=== PATIENT | female | born 1995 | race African-American/Black ===

== ENCOUNTER 2024-04-18 18:52 | Inpatient (IN) ==
[2024-04-18] MEDS: CATAPRES TAB 0.3 MG PO ONE (19:28)
--- NOTE | 2024-04-18 20:03 | DR.GENAD ---
HPI Time Seen Time Seen by Provider: 04/18/24 19:55 PCP Primary Care Physician: Kathy Monge Complaint/Symptoms Chief Complaint Doctors Comments: Was sent over by ambulance from the dialysis clinic because she had bleeding from her left upper arm dialysis shunt that could not be stopped. Chief Complaint:: EMS BRUNG PT FROM [facility] WHERE SHE HAD TREATMENT TODAY PT HAD 2.5KG OFF AND LEFT UPPER ARM SHUNT NOT CLOTTING OFF, PT HAS CLAMPS X2 APPLIED AND BP ELEVATED. COVID-19 Coronavirus risk:travel/contact w/high risk person: No Has patient experienced Coronavirus symptoms: No Source History Provided: Patient and EMS Mode of Arrival Mode of Arrival: EMS Timing Onset of Chief Complaint: 04/18/24 PMH PMH Past Medical History: Yes Past Medical History: CHF, Hypertension, [place] and Renal Disease Past Surgical History: Yes Surgical History: Other Past Surgical History Comment: DIAYLIS SHUNT PLACEMENT X3 Family History History of Family Medical Conditions: Yes Family Medical History: Hypertension Social History Do you use any recreational Drugs:: No Travel Risk Coronavirus risk:travel/contact w/high risk person: No Has patient experienced Coronavirus symptoms: No Infectious screening Have you traveled outside the country in the last 6 months?: No Isolation: Standard ROS Review of Systems Constitutional: Other (bleeding from left upper arm dialysis shunt) Eyes: No Symptoms Reported ENTM: No Symptoms Reported Respiratoy: No Symptoms Reported Cardiovascular: No Symptoms Reported Gastrointestinal/Abdominal: No Symptoms Reported Genitourinary: No Symptoms Reported Neurological: No Symptoms Reported Musculoskeletal: No Symptoms Reported Integumentary: No Symptoms Reported Hematologic/Lymphatic: No Symptoms Reported Endocrine: No Symptoms Reported Psychiatric: No Symptoms Reported PE Vital Signs Vitals: Vital Signs Temperature 97.9 F Pulse Rate 71 Pulse Rate 72 Pulse Rate 71 Pulse Rate 72 Pulse Rate 70 Pulse Rate 73 Pulse Rate 76 Pulse Rate 78 Pulse Rate 71 Pulse Rate 79 Pulse Rate 79 Pulse Rate 82 Pulse Rate 78 Pulse Rate 78 Pulse Rate 77 Pulse Rate 78 Pulse Rate 75 Respiratory Rate 23 Respiratory Rate 24 Respiratory Rate 24 Respiratory Rate 22 Respiratory Rate 24 Respiratory Rate 24 Respiratory Rate 23 Respiratory Rate 30 Respiratory Rate 25 Respiratory Rate 30 Respiratory Rate 24 Respiratory Rate 24 Respiratory Rate 31 Respiratory Rate 20 Respiratory Rate 29 Respiratory Rate 24 Respiratory Rate 29 Respiratory Rate 29 Respiratory Rate 20 Blood Pressure 208/112 Blood Pressure 171/112 Blood Pressure 191/119 Blood Pressure 216/124 Blood Pressure 204/124 Blood Pressure 239/137 Blood Pressure 225/122 Blood Pressure 225/122 Blood Pressure 230/121 O2 Sat by Pulse Oximetry 100 O2 Sat by Pulse Oximetry 100 O2 Sat by Pulse Oximetry 100 O2 Sat by Pulse Oximetry 100 O2 Sat by Pulse Oximetry 99 O2 Sat by Pulse Oximetry 99 O2 Sat by Pulse Oximetry 100 O2 Sat by Pulse Oximetry 100 O2 Sat by Pulse Oximetry 100 O2 Sat by Pulse Oximetry 99 O2 Sat by Pulse Oximetry 99 O2 Sat by Pulse Oximetry 98 O2 Sat by Pulse Oximetry 98 O2 Sat by Pulse Oximetry 98 O2 Sat by Pulse Oximetry 98 O2 Sat by Pulse Oximetry 98 O2 Sat by Pulse Oximetry 99 General Limitations: No Limitations General Appearance: In Distress (mild distress) Head Head Exam: Normal Inspection and Atraumatic Eyes Eye exam: Normal Appearance, PERRL and EOMI ENT ENT Exam: Normal Exam, Normal Oropharynx and Normal External Ear Exam External Ear Exam: Normal External Inspection TM/Canal Exam: Bilateral: Normal Nose Exam: Normal Nose Exam Mouth Exam: Normal Inspection Throat Exam: Normal Inspection Neck Neck Exam: Normal Inspection Chest Chest Inspection: Normal Inspection Respiratory Respiratory Exam: Normal Lung Sounds Bilat Cardiovascular Cardiovascular Exam: Regular Rate and Normal Rhythm Abdominal Exam Abdominal Exam: Normal Inspection and Normal Bowel Sounds Extremities Extremities Exam: Other (dialysis shunt in left upper arm with pressure point tourniquet.) Back Back Exam: Normal Inspection Neurologic Neurological Exam: Alert, Oriented X3 and CN II-XII Intact Psychiatric Psychiatric Exam: Depressed Skin Skin Exam: Warm and Dry MDM Differential Diagnosis Differential Diagnosis: bleeding from dialysis shunt that is clamped off COURSE Treatment Treatment: She also had a blood pressure elevated so she was given clonidine 0.3 mg orally here may have to do supple nicardipine drip in order to try to bring it down. We did call Dr. Baum who is the surgeon on-call and he said they he does deal with these types of shots and he told us to get a PT and INR and he would be here in 15 minutes to evaluate the patient. Dr. Baum did come in to evaluate the patient and he applied 3 sutures into that left upper arm dialysis shunt and stop bleeding the patient the patient will be admitted to him and he asked that Dr. Cho to manage her blood pressure but she refused. So Dr Baum stated to admit the patient to him and he would manage her blood pressure. [facility] Labs Reviewed Laboratory Results Reviewed?: Yes Laboratory: PT 12.5 SECONDS (11.8-14.3) 04/18/24 20:05 INR Target Range - 04/18/24 20:05 INR 0.95 (0.8-1.3) 04/18/24 20:05 APTT 27.0 SECONDS (22.9-36.5) 04/18/24 20:05 PTT Comment - 04/18/24 20:05 Opioid Opioid Risk Tool Age (Maikel box if 16-45): Yes History of Preadolescent Sexual Abuse: No Total: 1 Total Score Risk Category: Low Risk Copyright: Shamir LOWE predicting aberrant behaviors Discharge Plan Diagnosis Discharge Problem: Bleeding from dialysis shunt, Malignant hypertension Discharge Plan Patient Disposition: 09 ADMITTED INPATIENT Condition: Stable
[2024-04-18 20:24] LABS: INR 0.95 (0.8-1.3)
[2024-04-18] MEDS: ZOFRAN INJ 4 MG VIAL IVP ONE (20:59)
[2024-04-18] MEDS: MORPHINE SULFATE INJ 2 MG INJ IVP ONE (21:00)
[2024-04-18] MEDS: NITROGLYCERIN IV PREMIX 50 MG 50 MG/250 ML BAG IV PRN (22:50)
[2024-04-18] MEDS: DILAUDID INJ IVP PRN (23:26)
[2024-04-19 01:00] VITALS: BMI 27.2
[2024-04-19] MEDS: APRESOLINE TAB 25 MG PO SCH (11:15)
[2024-04-19] MEDS: CATAPRES TAB 0.3 MG PO SCH (11:15)
[2024-04-19 12:57] LABS: EOSINOPHILS % (AUTO) 5.2 % (0.9-2.9)
[2024-04-19 13:06] LABS: BASOPHILS # (AUTO) 0.2 X10^3/uL (0.0-0.1); EOSINOPHILS # (AUTO) 0.4 x10^3/uL (0.0-0.2); HEMATOCRIT 33.1 % (36.0-47.0); HEMOGLOBIN 11.1 g/dL (12.0-16.0); LYMPHOCYTES # (AUTO) 3.5 X10^3/uL (1.3-2.9); LYMPHOCYTES % (AUTO) 41.6 % (21.0-51.0); MEAN CORPUSCULAR HEMOGLOBIN 30.7 pg (27.0-34.0); MEAN CORPUSCULAR HGB CONC 33.6 g/dL (33.0-35.0); MEAN CORPUSCULAR VOLUME 91.5 fL (80.0-100.0); MONOCYTES % (AUTO) 12.2 % (0.0-13.0); NEUTROPHILS # (AUTO) 3.3 x10^3/uL (2.2-4.8); PLATELET COUNT 223 X10^3/uL (150.0-450.0); RED BLOOD COUNT 3.62 X10^6/uL (3.5-5.4); RED CELL DISTRIBUTION WIDTH 20.1 % (11.6-16.5)
[2024-04-19 13:13] LABS: WHITE BLOOD COUNT 8.4 X10^3/uL (3.6-10.0)
[2024-04-19 13:14] LABS: ANISOCYTOSIS 1+; PLATELET MORPHOLOGY COMMENT NORMAL (NORMAL)
--- NOTE | 2024-04-19 14:49 | DR.H&P ---
H&P History & Physical for Day of: H&P Date: 04/18/24 Chief Complaint Chief Complaint: bleeding from left upper arm AV fistula after removing dialysis cannulation History of Present Illness History of Present Illness: 29 nyo female with severe ypertension and subsequent renal failure who has been undergoing dialysis for many years. After dialysis yesterday via left upper arm AV fistula she continued have significant puls atile bleeding from the cannulation sites. Pressure clamps were placed over both needle sticks and she was transferred by EMS to our emergency room. Her blood pressure was 230/120. She had suture closure of the cannulation sites and is admitted for control of her blood pressure. Past Medical History Past Medical History: CHF, Hypertension, [place] and Renal Disease Additional Medical History: she gives histroy of "Leukemia " but can give few details of this Past Surgical History Surgical History: Cholecystectomy Family History Family Medical History: Diabetes Mellitus and Hypertension Social History Does patient currently use any type of tobacco product: Yes Type of Tobacco Use: Cigarettes How many years tobacco product used: 2 Does any household member use tobacco: No Alcohol Use: None Drug Use: None Medications Home Medications: Home Medications Medication Instructions Recorded Confirmed Type aspirin 81 mg tablet,delayed 81 mg PO DAILY 04/18/24 04/18/24 History release clonidine HCl 0.3 mg tablet 0.3 mg PO TID 04/18/24 04/18/24 History hydralazine 25 mg tablet 25 mg PO BID 04/18/24 04/18/24 History medroxyprogesterone 10 mg tablet 10 mg PO QDAY 04/18/24 04/18/24 History sodium polystyrene sulfonate 15 ml 04/18/24 History gram-sorbitol 20 gram/60 mL oral susp (SPS (with sorbitol)) Allergies Allergies Allergy/AdvReac Type Severity Reaction Status Date / Time levofloxacin [From Levaquin] Allergy Verified 04/18/24 19:24 pineapple Allergy Verified 01/22/23 11:49 Labs 04/19/24 12:47 Labs: Laboratory PT 12.5 SECONDS (11.8-14.3) 04/18/24 20:05 INR Target Range - 04/18/24 20:05 INR 0.95 (0.8-1.3) 04/18/24 20:05 APTT 27.0 SECONDS (22.9-36.5) 04/18/24 20:05 PTT Comment - 04/18/24 20:05 Review of Systems Constitutional: See HPI Eyes: No Symptoms Reported ENT: No Symptoms Reported Respiratory: No Symptoms Reported Cardiovascular: See HPI Gastrointestinal: No Symptoms Reported Genitourinary: No Symptoms Reported Musculoskeletal: No Symptoms Reported Skin: No Symptoms Reported Neurological: No Symptoms Reported Physical Exam Vital Signs: Vital Signs Temperature 98.4 F Temperature 98.4 F Pulse Rate [Right Brachial] 75 Pulse Rate [Right Brachial] 80 Pulse Rate [Right Brachial] 75 Pulse Rate [Right Brachial] 75 Pulse Rate [Right Brachial] 75 Pulse Rate [Right Brachial] 75 Pulse Rate [Right Brachial] 74 Pulse Rate [Right Brachial] 73 Pulse Rate [Right Brachial] 77 Pulse Rate [Right Brachial] 70 Pulse Rate [Right Brachial] 77 Pulse Rate [Right Brachial] 65 Pulse Rate [Right Brachial] 66 Pulse Rate [Right Brachial] 71 Pulse Rate [Right Brachial] 71 Pulse Rate [Right Brachial] 71 Pulse Rate [Right Brachial] 70 Pulse Rate [Right Brachial] 69 Pulse Rate [Right Brachial] 69 Pulse Rate [Right Brachial] 68 Pulse Rate [Right Brachial] 67 Pulse Rate [Right Brachial] 69 Pulse Rate [Right Brachial] 69 Pulse Rate [Right Brachial] 68 Pulse Rate [Right Brachial] 68 Pulse Rate [Right Brachial] 68 Respiratory Rate 17 Respiratory Rate 18 Respiratory Rate 15 Respiratory Rate 17 Respiratory Rate 14 Respiratory Rate 16 Respiratory Rate 17 Respiratory Rate 16 Respiratory Rate 16 Respiratory Rate 18 Respiratory Rate 18 Respiratory Rate 18 Respiratory Rate 18 Respiratory Rate 15 Respiratory Rate 15 Respiratory Rate 16 Respiratory Rate 17 Respiratory Rate 15 Respiratory Rate 15 Respiratory Rate 16 Respiratory Rate 24 Respiratory Rate 15 Respiratory Rate 15 Respiratory Rate 15 Respiratory Rate 14 Respiratory Rate 15 Respiratory Rate 14 Respiratory Rate 16 Respiratory Rate 16 Respiratory Rate 17 Blood Pressure [Left Arm] 138/96 Blood Pressure [Left Arm] 151/93 Blood Pressure [Left Arm] 154/91 Blood Pressure [Left Arm] 158/93 Blood Pressure [Left Arm] 161/93 Blood Pressure [Left Arm] 168/98 Blood Pressure [Left Arm] 173/99 Blood Pressure [Left Arm] 170/96 Blood Pressure [Left Arm] 190/105 Blood Pressure [Left Arm] 158/90 Blood Pressure [Left Arm] 139/69 Blood Pressure [Left Arm] 144/81 Blood Pressure [Left Arm] 172/105 Blood Pressure [Left Arm] 155/95 Blood Pressure [Left Arm] 166/103 Blood Pressure [Left Arm] 178/104 Blood Pressure [Left Arm] 171/04 Blood Pressure [Left Arm] 173/106 Blood Pressure [Left Arm] 173/102 Blood Pressure [Left Arm] 166/103 Blood Pressure [Left Arm] 178/107 Blood Pressure [Left Arm] 155/89 Blood Pressure [Left Arm] 155/89 Blood Pressure [Left Arm] 164/93 Blood Pressure [Left Arm] 160/94 Blood Pressure [Left Arm] 157/87 O2 Sat by Pulse Oximetry 99 O2 Sat by Pulse Oximetry 100 O2 Sat by Pulse Oximetry 99 O2 Sat by Pulse Oximetry 99 O2 Sat by Pulse Oximetry 100 O2 Sat by Pulse Oximetry 99 O2 Sat by Pulse Oximetry 99 O2 Sat by Pulse Oximetry 100 O2 Sat by Pulse Oximetry 100 O2 Sat by Pulse Oximetry 99 O2 Sat by Pulse Oximetry 100 O2 Sat by Pulse Oximetry 100 O2 Sat by Pulse Oximetry 100 O2 Sat by Pulse Oximetry 100 O2 Sat by Pulse Oximetry 100 O2 Sat by Pulse Oximetry 100 O2 Sat by Pulse Oximetry 100 O2 Sat by Pulse Oximetry 100 O2 Sat by Pulse Oximetry 100 O2 Sat by Pulse Oximetry 100 O2 Sat by Pulse Oximetry 100 O2 Sat by Pulse Oximetry 100 O2 Sat by Pulse Oximetry 100 O2 Sat by Pulse Oximetry 100 O2 Sat by Pulse Oximetry 100 O2 Sat by Pulse Oximetry 100 Oriented: Normal, Time, Person and Place Eyes: Normal Ear: Normal Nose: Normal Throat: Normal Respiratory: Clear Throughout Cardiovascular: Normal and Other (severe hypertension ) : Normal Auscultation: Bowel Sounds: Normal Palpation: Normal Tenderness: Normal Skin: Normal Musculoskeletal: Normal Psychiatric: Normal Mood Description: Anxious Affect: Anxious Speech Pattern: Clear and Appropriate Assessment/Plan (1) Hypertension: Status: Acute Plan: admit, IV NTG and make sure she is back on all of her antihypertensives (2) ESRD on dialysis: Status: Acute Plan: routine labs Review H&P Reviewed: Yes Patient was examined?: Yes
[2024-04-19] MEDS: PROCARDIA XL 24-HR PO SCH (16:24)
[2024-04-19] MEDS: NORMODYNE TAB 200 MG PO SCH (16:24)
[2024-04-19] MEDS: COZAAR PO SCH (16:24)
[2024-04-19 17:05] VITALS: O2SAT 100
--- NOTE | 2024-04-19 18:24 | NOTE.SOAP ---
Soap Note Note for Day of Date of Exam: 04/19/24 Subjective Data Subjective Data: Patient with pulsatile bleeding from our tier of venous fistula after dialysis requiring suture closure of the holes. patient with severe hypertension being treated with IV nitroglycerin. Causing headache. She has not been taking her labetalol, nifidipine and losartan and only using clonidine and hydrazine. Objective Data Temperature: 7.9 F Pulse Rate: 93 Respiratory Rate: 13 Blood Pressure: 154/98 O2 Sat by Pulse Oximetry: 100 Objective Data: Blood pressure as above but has been as high as 220 /120, no further bleeding from the puncture sites of the left arm a fistula Assessment Assessment: bleeding from puncture sites ofAV fistula left arm resolved. Still with significant hypertension Plan Plan: hydrazine increased to 25 milligrams qid. Continue clonidine, restart nifedipine , labetalol and losartan.
[2024-04-19] MEDS: KAYEXALATE SUSP PO SCH (20:33)
[2024-04-20 05:59] LABS: CALCIUM 8.5 mg/dL (8.5-10.1); CARBON DIOXIDE 27.8 mmol/L (21-32); CREATININE 7.89 mg/dL (0.55-1.02); POTASSIUM 4.4 mmol/L (3.5-5.1)
[2024-04-20] MEDS: PROVERA PO SCH (08:50)
[2024-04-20] MEDS: HYDROGEN PEROXIDE 3% ONE (09:01)
[2024-04-20] MEDS: BETADINE SOLN ONE (09:01)
--- NOTE | 2024-04-20 14:17 | NOTE.SOAP ---
Soap Note Note for Day of Date of Exam: 04/20/24 Subjective Data Subjective Data: No bleeding from the left arm AV fistula puncture sites. BP under control since all of her home antihypertensives started back . Objective Data Temperature: 98.5 F Pulse Rate: 82 Respiratory Rate: 19 Blood Pressure: 135/75 O2 Sat by Pulse Oximetry: 100 Objective Data: as above Assessment Assessment: Severe hypertension and bleeding from the left arm AV fistula punctures, resolved Plan Plan: discharge tomorrow to dialysis , continue all home antihypertensives.
--- NOTE | 2024-04-21 07:59 | W.DIS.FURT ---
Summary of Discharge Discharge Summary of Date Date of Exam: 04/21/24 Admission Date Date of Admission: 04/18/24 Admission Diagnosis Patient Problems (Updated 04/18/24 @ 22:23 by Aguila Henson) Bleeding from dialysis shunt (Acute) T82.838A Malignant hypertension (Acute) I10 Hospital Course: This is a 29 year old female within stage renal failure secondary to hypertension. She had dialysis on Sunday,the 18 of April and had significant pulsatile bleeding from the fistula of her left upper arm and was brought to the emergency room by EMS her blood pressure was 220 over 120. I' closed the puncture sites and initially placed her in the ICU and placed her on nitroglycerin drip. She has been on multiple medications for blood pressure but has not been takinf her losartan metoprolol of nifidioine She only been taking her clonidine and hydralazine She was started back on all her medications. blood pressure was under good control when takes her medications. No further bleeding from the puncture sites. She will be discharged today so she can go to dialysis . I will discuss this with her limousine rental clerk. F/U i week with me to remove sutures . Vital Signs: Vital Signs (72 hours) 04/19/24 18:24 04/20/24 14:13 04/18/24 19:08 Temperature 7.9 F L 98.5 F 97.9 F Pulse Rate 93 H 82 75 Pulse Rate [Right Brachial] Respiratory Rate 13 19 20 Blood Pressure 154/98 135/75 230/121 Blood Pressure [Left Arm] O2 Sat by Pulse Oximetry 100 100 99 Oxygen Delivery Method 04/18/24 19:10 04/18/24 19:15 04/18/24 19:30 Temperature Pulse Rate 78 77 78 Pulse Rate [Right Brachial] Respiratory Rate 29 H 29 H 24 Blood Pressure Blood Pressure [Left Arm] O2 Sat by Pulse Oximetry 98 98 98 Oxygen Delivery Method 04/18/24 19:38 04/18/24 19:38 04/18/24 19:38 Temperature Pulse Rate 78 Pulse Rate [Right Brachial] Respiratory Rate 29 H Blood Pressure 225/122 225/122 Blood Pressure [Left Arm] O2 Sat by Pulse Oximetry 98 Oxygen Delivery Method 04/18/24 19:45 04/18/24 20:00 04/18/24 20:00 Temperature Pulse Rate 82 79 Pulse Rate [Right Brachial] Respiratory Rate 20 31 H Blood Pressure 239/137 Blood Pressure [Left Arm] O2 Sat by Pulse Oximetry 98 99 Oxygen Delivery Method 04/18/24 20:07 04/18/24 20:07 04/18/24 20:15 Temperature Pulse Rate 79 71 Pulse Rate [Right Brachial] Respiratory Rate 24 24 Blood Pressure 204/124 Blood Pressure [Left Arm] O2 Sat by Pulse Oximetry 99 100 Oxygen Delivery Method 04/18/24 20:30 04/18/24 20:30 04/18/24 21:00 Temperature Pulse Rate 78 Pulse Rate [Right Brachial] Respiratory Rate 30 H 30 H Blood Pressure 216/124 Blood Pressure [Left Arm] O2 Sat by Pulse Oximetry 100 Oxygen Delivery Method 04/18/24 20:45 04/18/24 21:00 04/18/24 21:00 Temperature Pulse Rate 76 73 Pulse Rate [Right Brachial] Respiratory Rate 25 H 23 Blood Pressure 191/119 Blood Pressure [Left Arm] O2 Sat by Pulse Oximetry 100 99 Oxygen Delivery Method 04/18/24 21:15 04/18/24 21:30 04/18/24 21:30 Temperature Pulse Rate 70 72 Pulse Rate [Right Brachial] Respiratory Rate 24 24 Blood Pressure 171/112 Blood Pressure [Left Arm] O2 Sat by Pulse Oximetry 99 100 Oxygen Delivery Method 04/18/24 21:30 04/18/24 21:45 04/18/24 22:00 Temperature Pulse Rate 71 72 Pulse Rate [Right Brachial] Respiratory Rate 22 24 24 Blood Pressure Blood Pressure [Left Arm] O2 Sat by Pulse Oximetry 100 100 Oxygen Delivery Method 04/18/24 22:01 04/18/24 22:01 04/18/24 22:15 Temperature Pulse Rate 71 73 Pulse Rate [Right Brachial] Respiratory Rate 23 26 H Blood Pressure 208/112 Blood Pressure [Left Arm] O2 Sat by Pulse Oximetry 100 100 Oxygen Delivery Method 04/18/24 23:26 04/18/24 22:14 04/18/24 22:35 Temperature Pulse Rate Pulse Rate [Right Brachial] 72 Respiratory Rate 24 24 Blood Pressure Blood Pressure [Left Arm] 194/113 O2 Sat by Pulse Oximetry 100 Oxygen Delivery Method Room Air 04/18/24 22:45 04/18/24 22:50 04/18/24 22:55 Temperature Pulse Rate Pulse Rate [Right Brachial] 76 75 73 Respiratory Rate 21 23 24 Blood Pressure Blood Pressure [Left Arm] 148/88 156/96 153/96 O2 Sat by Pulse Oximetry 100 99 100 Oxygen Delivery Method 04/18/24 23:00 04/18/24 23:05 04/18/24 23:10 Temperature Pulse Rate Pulse Rate [Right Brachial] 72 73 73 Respiratory Rate 24 20 23 Blood Pressure Blood Pressure [Left Arm] 157/101 182/108 188/114 O2 Sat by Pulse Oximetry 100 100 100 Oxygen Delivery Method 04/18/24 23:15 04/18/24 23:23 04/18/24 23:26 Temperature Pulse Rate Pulse Rate [Right Brachial] 72 72 73 Respiratory Rate 22 26 H 21 Blood Pressure Blood Pressure [Left Arm] 193/124 195/110 179/105 O2 Sat by Pulse Oximetry 100 100 100 Oxygen Delivery Method 04/18/24 23:30 04/18/24 23:56 04/18/24 23:30 Temperature Pulse Rate Pulse Rate [Right Brachial] 72 72 Respiratory Rate 21 17 21 Blood Pressure Blood Pressure [Left Arm] 164/93 164/93 O2 Sat by Pulse Oximetry 99 99 Oxygen Delivery Method 04/18/24 23:35 04/18/24 23:50 04/19/24 00:00 Temperature Pulse Rate Pulse Rate [Right Brachial] 74 71 70 Respiratory Rate 16 20 20 Blood Pressure Blood Pressure [Left Arm] 156/90 140/82 150/91 O2 Sat by Pulse Oximetry 100 100 100 Oxygen Delivery Method 04/19/24 00:30 04/19/24 01:00 04/19/24 01:30 Temperature 98 F Pulse Rate Pulse Rate [Right Brachial] 70 68 70 Respiratory Rate 20 19 18 Blood Pressure Blood Pressure [Left Arm] 184/96 168/95 158/93 O2 Sat by Pulse Oximetry 100 100 100 Oxygen Delivery Method 04/19/24 02:00 04/19/24 02:30 04/19/24 03:00 Temperature Pulse Rate Pulse Rate [Right Brachial] 76 71 68 Respiratory Rate 21 18 17 Blood Pressure Blood Pressure [Left Arm] 145/85 151/81 157/87 O2 Sat by Pulse Oximetry 100 100 100 Oxygen Delivery Method 04/19/24 03:30 04/19/24 04:00 04/19/24 05:00 Temperature 98.4 F Pulse Rate Pulse Rate [Right Brachial] 68 68 69 Respiratory Rate 16 16 15 Blood Pressure Blood Pressure [Left Arm] 160/94 164/93 155/89 O2 Sat by Pulse Oximetry 100 100 100 Oxygen Delivery Method 04/19/24 04:52 04/19/24 06:00 04/19/24 05:22 Temperature Pulse Rate Pulse Rate [Right Brachial] 69 Respiratory Rate 14 15 14 Blood Pressure Blood Pressure [Left Arm] 155/89 O2 Sat by Pulse Oximetry 100 Oxygen Delivery Method 04/19/24 06:03 04/19/24 06:06 04/19/24 06:24 Temperature Pulse Rate Pulse Rate [Right Brachial] 67 68 69 Respiratory Rate 15 15 24 Blood Pressure Blood Pressure [Left Arm] 178/107 166/103 173/102 O2 Sat by Pulse Oximetry 100 100 100 Oxygen Delivery Method 04/19/24 06:25 04/19/24 06:45 04/19/24 07:00 Temperature Pulse Rate Pulse Rate [Right Brachial] 69 70 71 Respiratory Rate 16 15 16 Blood Pressure Blood Pressure [Left Arm] 173/106 171/04 155/95 O2 Sat by Pulse Oximetry 100 100 100 Oxygen Delivery Method 04/19/24 06:49 04/19/24 06:54 04/19/24 07:15 Temperature Pulse Rate Pulse Rate [Right Brachial] 71 71 66 Respiratory Rate 15 17 15 Blood Pressure Blood Pressure [Left Arm] 178/104 166/103 172/105 O2 Sat by Pulse Oximetry 100 100 100 Oxygen Delivery Method 04/19/24 07:30 04/19/24 08:00 04/19/24 07:00 Temperature 98.4 F Pulse Rate Pulse Rate [Right Brachial] 65 77 Respiratory Rate 15 18 Blood Pressure Blood Pressure [Left Arm] 144/81 139/69 O2 Sat by Pulse Oximetry 100 100 Oxygen Delivery Method Room Air 04/19/24 08:05 04/19/24 08:30 04/19/24 08:35 Temperature Pulse Rate Pulse Rate [Right Brachial] 70 Respiratory Rate 18 18 18 Blood Pressure Blood Pressure [Left Arm] 158/90 O2 Sat by Pulse Oximetry 99 Oxygen Delivery Method 04/19/24 09:00 04/19/24 09:09 04/19/24 09:14 Temperature Pulse Rate Pulse Rate [Right Brachial] 77 73 74 Respiratory Rate 16 16 17 Blood Pressure Blood Pressure [Left Arm] 190/105 170/96 173/99 O2 Sat by Pulse Oximetry 100 100 99 Oxygen Delivery Method 04/19/24 09:19 04/19/24 09:26 04/19/24 09:36 Temperature Pulse Rate Pulse Rate [Right Brachial] 75 75 75 Respiratory Rate 16 14 15 Blood Pressure Blood Pressure [Left Arm] 168/98 161/93 154/91 O2 Sat by Pulse Oximetry 99 100 99 Oxygen Delivery Method 04/19/24 09:31 04/19/24 10:06 04/19/24 10:36 Temperature Pulse Rate Pulse Rate [Right Brachial] 75 80 75 Respiratory Rate 17 18 17 Blood Pressure Blood Pressure [Left Arm] 158/93 151/93 138/96 O2 Sat by Pulse Oximetry 99 100 99 Oxygen Delivery Method 04/19/24 11:06 04/19/24 11:15 04/19/24 13:18 Temperature Pulse Rate Pulse Rate [Right Brachial] 72 Respiratory Rate 18 18 16 Blood Pressure Blood Pressure [Left Arm] 163/88 O2 Sat by Pulse Oximetry 100 Oxygen Delivery Method 04/19/24 16:05 04/19/24 11:36 04/19/24 12:00 Temperature 97.8 F Pulse Rate Pulse Rate [Right Brachial] 79 80 Respiratory Rate 20 20 19 Blood Pressure Blood Pressure [Left Arm] 138/96 163/88 O2 Sat by Pulse Oximetry 98 100 Oxygen Delivery Method 04/19/24 11:45 04/19/24 13:00 04/19/24 13:48 Temperature Pulse Rate Pulse Rate [Right Brachial] 71 Respiratory Rate 17 18 18 Blood Pressure Blood Pressure [Left Arm] 157/90 O2 Sat by Pulse Oximetry 99 Oxygen Delivery Method 04/19/24 14:00 04/19/24 15:00 04/19/24 15:06 Temperature Pulse Rate Pulse Rate [Right Brachial] 71 87 72 Respiratory Rate 20 19 18 Blood Pressure Blood Pressure [Left Arm] 177/97 173/99 183/112 O2 Sat by Pulse Oximetry 99 100 99 Oxygen Delivery Method 04/19/24 15:11 04/19/24 15:17 04/19/24 15:22 Temperature Pulse Rate Pulse Rate [Right Brachial] 71 75 72 Respiratory Rate 19 20 17 Blood Pressure Blood Pressure [Left Arm] 193/99 189/109 191/113 O2 Sat by Pulse Oximetry 99 100 100 Oxygen Delivery Method 04/19/24 15:27 04/19/24 15:32 04/19/24 15:37 Temperature Pulse Rate Pulse Rate [Right Brachial] 76 74 73 Respiratory Rate 18 20 19 Blood Pressure Blood Pressure [Left Arm] 196/114 180/101 187/109 O2 Sat by Pulse Oximetry 99 100 99 Oxygen Delivery Method 04/19/24 15:42 04/19/24 16:00 04/19/24 16:35 Temperature 97.9 F Pulse Rate Pulse Rate [Right Brachial] 74 76 Respiratory Rate 20 19 19 Blood Pressure Blood Pressure [Left Arm] 184/109 176/109 O2 Sat by Pulse Oximetry 100 99 Oxygen Delivery Method 04/19/24 17:00 04/19/24 18:00 04/19/24 20:09 Temperature Pulse Rate Pulse Rate [Right Brachial] 83 93 H Respiratory Rate 21 13 26 H Blood Pressure Blood Pressure [Left Arm] 220/125 154/98 O2 Sat by Pulse Oximetry 100 100 Oxygen Delivery Method 04/19/24 19:00 04/19/24 19:00 04/19/24 20:00 Temperature 97.8 F Pulse Rate Pulse Rate [Right Brachial] 83 85 Respiratory Rate 19 26 H Blood Pressure Blood Pressure [Left Arm] 203/111 192/103 O2 Sat by Pulse Oximetry 99 100 Oxygen Delivery Method Room Air 04/19/24 21:00 04/19/24 22:00 04/19/24 23:00 Temperature Pulse Rate Pulse Rate [Right Brachial] 86 82 85 Respiratory Rate 19 24 19 Blood Pressure Blood Pressure [Left Arm] 126/73 116/59 142/82 O2 Sat by Pulse Oximetry 100 100 100 Oxygen Delivery Method 04/20/24 00:00 04/20/24 01:00 04/20/24 02:00 Temperature 98 F Pulse Rate Pulse Rate [Right Brachial] 86 86 87 Respiratory Rate 21 21 22 Blood Pressure Blood Pressure [Left Arm] 155/99 149/87 140/80 O2 Sat by Pulse Oximetry 100 100 100 Oxygen Delivery Method 04/19/24 20:39 04/20/24 02:29 04/20/24 03:00 Temperature Pulse Rate Pulse Rate [Right Brachial] 83 Respiratory Rate 20 25 H 17 Blood Pressure Blood Pressure [Left Arm] 146/92 O2 Sat by Pulse Oximetry 100 Oxygen Delivery Method 04/20/24 04:00 04/20/24 02:59 04/20/24 05:00 Temperature 98.2 F Pulse Rate Pulse Rate [Right Brachial] 87 83 Respiratory Rate 26 H 17 16 Blood Pressure Blood Pressure [Left Arm] 129/78 129/73 O2 Sat by Pulse Oximetry 100 100 Oxygen Delivery Method 04/20/24 06:00 04/20/24 07:00 04/20/24 07:00 Temperature Pulse Rate 90 Pulse Rate [Right Brachial] 89 Respiratory Rate 16 16 Blood Pressure 151/79 Blood Pressure [Left Arm] 158/90 O2 Sat by Pulse Oximetry 100 100 Oxygen Delivery Method 04/20/24 08:00 04/20/24 08:00 04/20/24 09:00 Temperature Pulse Rate 92 H 93 H Pulse Rate [Right Brachial] Respiratory Rate 19 24 Blood Pressure 148/79 Blood Pressure [Left Arm] O2 Sat by Pulse Oximetry 100 100 Oxygen Delivery Method 04/20/24 07:00 04/20/24 09:38 04/20/24 09:01 Temperature Pulse Rate 91 H Pulse Rate [Right Brachial] Respiratory Rate 18 23 Blood Pressure Blood Pressure [Left Arm] O2 Sat by Pulse Oximetry 100 Oxygen Delivery Method Room Air 04/20/24 09:01 04/20/24 10:00 04/20/24 10:00 Temperature Pulse Rate 87 Pulse Rate [Right Brachial] Respiratory Rate 18 Blood Pressure 140/76 154/91 Blood Pressure [Left Arm] O2 Sat by Pulse Oximetry 100 Oxygen Delivery Method 04/20/24 10:08 04/20/24 11:00 04/20/24 11:01 Temperature Pulse Rate 84 85 Pulse Rate [Right Brachial] Respiratory Rate 20 19 17 Blood Pressure Blood Pressure [Left Arm] O2 Sat by Pulse Oximetry 100 100 Oxygen Delivery Method 04/20/24 11:01 04/20/24 12:00 04/20/24 12:00 Temperature 98.5 F Pulse Rate 85 Pulse Rate [Right Brachial] Respiratory Rate 19 Blood Pressure 138/74 146/80 Blood Pressure [Left Arm] O2 Sat by Pulse Oximetry 100 Oxygen Delivery Method 04/20/24 13:00 04/20/24 13:01 04/20/24 13:01 Temperature Pulse Rate 84 83 Pulse Rate [Right Brachial] Respiratory Rate 22 23 Blood Pressure 147/111 Blood Pressure [Left Arm] O2 Sat by Pulse Oximetry 100 100 Oxygen Delivery Method 04/20/24 13:02 04/20/24 13:02 04/20/24 14:00 Temperature Pulse Rate 82 Pulse Rate [Right Brachial] Respiratory Rate 19 Blood Pressure 135/75 122/67 Blood Pressure [Left Arm] O2 Sat by Pulse Oximetry 100 Oxygen Delivery Method 04/20/24 14:00 04/20/24 15:00 04/20/24 15:00 Temperature Pulse Rate 85 87 Pulse Rate [Right Brachial] Respiratory Rate 18 21 Blood Pressure 137/82 Blood Pressure [Left Arm] O2 Sat by Pulse Oximetry 100 100 Oxygen Delivery Method 04/20/24 16:00 04/20/24 16:00 04/20/24 17:00 Temperature 97.8 F Pulse Rate 86 Pulse Rate [Right Brachial] Respiratory Rate 19 Blood Pressure 137/78 144/98 Blood Pressure [Left Arm] O2 Sat by Pulse Oximetry 100 Oxygen Delivery Method 04/20/24 17:00 04/20/24 18:00 04/20/24 18:01 Temperature Pulse Rate 84 86 86 Pulse Rate [Right Brachial] Respiratory Rate 21 20 22 Blood Pressure Blood Pressure [Left Arm] O2 Sat by Pulse Oximetry 100 100 100 Oxygen Delivery Method 04/20/24 18:01 04/20/24 22:55 04/20/24 19:00 Temperature 98.4 F Pulse Rate 87 Pulse Rate [Right Brachial] Respiratory Rate 29 H 27 H Blood Pressure 170/97 170/90 Blood Pressure [Left Arm] O2 Sat by Pulse Oximetry 100 Oxygen Delivery Method Room Air 04/20/24 20:00 04/20/24 21:00 04/20/24 22:00 Temperature Pulse Rate 92 H 92 H 91 H Pulse Rate [Right Brachial] Respiratory Rate 25 H 19 32 H Blood Pressure 165/91 156/88 170/96 Blood Pressure [Left Arm] O2 Sat by Pulse Oximetry 100 100 100 Oxygen Delivery Method Room Air Room Air Room Air 04/20/24 19:00 04/20/24 23:00 04/21/24 00:00 Temperature 98.1 F Pulse Rate 92 H 87 Pulse Rate [Right Brachial] Respiratory Rate 33 H 29 H Blood Pressure 169/94 167/91 Blood Pressure [Left Arm] O2 Sat by Pulse Oximetry 100 100 Oxygen Delivery Method Room Air Room Air Room Air 04/20/24 23:25 04/21/24 01:00 04/21/24 02:00 Temperature Pulse Rate 86 86 Pulse Rate [Right Brachial] Respiratory Rate 29 H 23 23 Blood Pressure 178/99 183/97 Blood Pressure [Left Arm] O2 Sat by Pulse Oximetry 100 100 Oxygen Delivery Method Room Air Room Air 04/21/24 03:00 04/21/24 04:00 04/21/24 05:00 Temperature 98.4 F Pulse Rate 87 91 H 91 H Pulse Rate [Right Brachial] Respiratory Rate 24 18 17 Blood Pressure 169/99 173/96 180/102 Blood Pressure [Left Arm] O2 Sat by Pulse Oximetry 100 100 100 Oxygen Delivery Method Room Air Room Air Room Air 04/21/24 06:00 04/20/24 19:00 04/20/24 19:00 Temperature Pulse Rate 90 85 Pulse Rate [Right Brachial] Respiratory Rate 26 H 21 Blood Pressure 194/109 173/100 Blood Pressure [Left Arm] O2 Sat by Pulse Oximetry 100 100 Oxygen Delivery Method Room Air 04/20/24 19:14 04/20/24 19:14 04/20/24 20:00 Temperature Pulse Rate 87 92 H Pulse Rate [Right Brachial] Respiratory Rate 27 H 25 H Blood Pressure 170/90 Blood Pressure [Left Arm] O2 Sat by Pulse Oximetry 100 100 Oxygen Delivery Method 04/20/24 20:00 04/20/24 21:00 04/20/24 21:00 Temperature Pulse Rate 92 H Pulse Rate [Right Brachial] Respiratory Rate 19 Blood Pressure 165/91 156/88 Blood Pressure [Left Arm] O2 Sat by Pulse Oximetry 100 Oxygen Delivery Method 04/20/24 22:00 04/20/24 22:00 04/20/24 23:00 Temperature Pulse Rate 91 H 92 H Pulse Rate [Right Brachial] Respiratory Rate 32 H 33 H Blood Pressure 170/96 Blood Pressure [Left Arm] O2 Sat by Pulse Oximetry 100 100 Oxygen Delivery Method 04/20/24 23:00 04/21/24 00:00 04/21/24 00:00 Temperature Pulse Rate 87 Pulse Rate [Right Brachial] Respiratory Rate 23 Blood Pressure 169/94 167/91 Blood Pressure [Left Arm] O2 Sat by Pulse Oximetry 100 Oxygen Delivery Method 04/21/24 01:00 04/21/24 01:00 04/21/24 02:00 Temperature Pulse Rate 86 Pulse Rate [Right Brachial] Respiratory Rate 23 Blood Pressure 178/99 183/97 Blood Pressure [Left Arm] O2 Sat by Pulse Oximetry 100 Oxygen Delivery Method 04/21/24 02:00 04/21/24 03:00 04/21/24 03:01 Temperature Pulse Rate 86 87 87 Pulse Rate [Right Brachial] Respiratory Rate 23 25 H 24 Blood Pressure Blood Pressure [Left Arm] O2 Sat by Pulse Oximetry 100 100 100 Oxygen Delivery Method 04/21/24 03:01 04/21/24 04:00 04/21/24 04:00 Temperature Pulse Rate 91 H Pulse Rate [Right Brachial] Respiratory Rate 18 Blood Pressure 169/99 173/96 Blood Pressure [Left Arm] O2 Sat by Pulse Oximetry 100 Oxygen Delivery Method 04/21/24 05:00 04/21/24 05:00 04/21/24 06:00 Temperature Pulse Rate 91 H 91 H Pulse Rate [Right Brachial] Respiratory Rate 17 18 Blood Pressure 180/102 Blood Pressure [Left Arm] O2 Sat by Pulse Oximetry 100 100 Oxygen Delivery Method 04/21/24 06:00 04/21/24 06:14 04/21/24 06:14 Temperature Pulse Rate 90 Pulse Rate [Right Brachial] Respiratory Rate 24 Blood Pressure 196/111 194/109 Blood Pressure [Left Arm] O2 Sat by Pulse Oximetry 100 Oxygen Delivery Method 04/21/24 07:00 04/21/24 07:00 Temperature Pulse Rate 91 H Pulse Rate [Right Brachial] Respiratory Rate 19 Blood Pressure 190/104 Blood Pressure [Left Arm] O2 Sat by Pulse Oximetry 100 Oxygen Delivery Method Labs: Laboratory Last Values WBC 8.4 X10^3/uL (3.6-10.0) 04/19/24 12:47 RBC 3.62 X10^6/uL (3.5-5.4) 04/19/24 12:47 Hgb 11.1 g/dL (12.0-16.0) L 04/19/24 12:47 Hct 33.1 % (36.0-47.0) L 04/19/24 12:47 MCV 91.5 fL (80.0-100.0) 04/19/24 12:47 MCH 30.7 pg (27.0-34.0) 04/19/24 12:47 MCHC 33.6 g/dL (33.0-35.0) 04/19/24 12:47 RDW 20.1 % (11.6-16.5) H 04/19/24 12:47 Plt Count 223 X10^3/uL (150.0-450.0) 04/19/24 12:47 Plt Count Comment Adequate (ADEQUATE) 04/19/24 12:47 MPV 8.0 fL (7.4-11.0) 04/19/24 12:47 Neut % (Auto) 39.0 % (42.0-75.0) L 04/19/24 12:47 Lymph % (Auto) 41.6 % (21.0-51.0) 04/19/24 12:47 [place]mer % (Auto) 12.2 % (0.0-13.0) 04/19/24 12:47 Eos % (Auto) 5.2 % (0.9-2.9) H 04/19/24 12:47 Baso % (Auto) 2.0 % (0.2-1.0) H 04/19/24 12:47 Neut # (Auto) 3.3 x10^3/uL (2.2-4.8) 04/19/24 12:47 Lymph # (Auto) 3.5 X10^3/uL (1.3-2.9) H 04/19/24 12:47 [place] # (Auto) 1.0 x10^3/uL (0.3-0.8) H 04/19/24 12:47 Eos # (Auto) 0.4 x10^3/uL (0.0-0.2) H 04/19/24 12:47 Baso # (Auto) 0.2 X10^3/uL (0.0-0.1) H 04/19/24 12:47 Absolute Nucleated RBC 0.9 /100WBC 04/19/24 12:47 Plt Clumps, EDTA Few 04/19/24 12:47 Plt Morphology Comment Normal (NORMAL) 04/19/24 12:47 RBC Morphology Abnormal (NORMAL) A 04/19/24 12:47 Anisocytosis 1+ A 04/19/24 12:47 PT 12.5 SECONDS (11.8-14.3) 04/18/24 20:05 INR Target Range - 04/18/24 20:05 INR 0.95 (0.8-1.3) 04/18/24 20:05 APTT 27.0 SECONDS (22.9-36.5) 04/18/24 20:05 PTT Comment - 04/18/24 20:05 Sodium 133 mmol/L (136-145) L 04/20/24 05:40 Corrected Sodium 137 mmol/L (136-145) 04/20/24 05:40 Potassium 4.4 mmol/L (3.5-5.1) 04/20/24 05:40 Chloride 93 mmol/L (98-107) L 04/20/24 05:40 Carbon Dioxide 27.8 mmol/L (21-32) 04/20/24 05:40 BUN 27 mg/dL (7-18) H 04/20/24 05:40 Creatinine 7.89 mg/dL (0.55-1.02) H 04/20/24 05:40 Est GFR (MDRD) Af Amer 8 (>60) L 04/20/24 05:40 Est GFR (MDRD) Non-Af 7 (>60) L 04/20/24 05:40 Glucose 275 mg/dL (65-99) H 04/20/24 05:40 Calcium 8.5 mg/dL (8.5-10.1) 04/20/24 05:40 Reason For Visit: HYPERTENSIVE URGENCY Discharge Date Discharge Date: 04/21/24 Discharge Diagnosis All Active Problems (Updated 04/18/24 @ 22:23 by Aguila Henson) Non Q wave myocardial infarction (Acute) Chest pain (Acute) ESRD on dialysis (Acute) Abdominal pain (Acute) Nausea & vomiting (Acute) Elevated d-dimer (Acute) Pulmonary edema (Acute) Hypertension (Acute) Acute hyperkalemia (Acute) Hypertension (Acute) Elevated troponin (Acute) CHF (congestive heart failure) (Acute) Nausea & vomiting (Acute) Diarrhea (Acute) Acute non-ST elevation myocardial infarction (NSTEMI) (Acute) CHF (congestive heart failure) (Acute) Hypertensive emergency (Acute) End-stage renal disease (ESRD) (Acute) Ovarian cyst (Acute) Hypertensive urgency (Acute) End stage chronic kidney disease (Acute) Hypertension (Acute) Back pain (Acute) Hypertensive urgency (Acute) Elevated troponin (Acute) End-stage renal disease (ESRD) (Acute) Chest pain (Acute) Accelerated hypertension (Acute) Non Q wave myocardial infarction (Acute) CHF (congestive heart failure) (Acute) Chronic renal failure (Acute) Nausea and vomiting (Acute) Bleeding from dialysis shunt (Acute) Malignant hypertension (Acute) Plan of Treatment: Continue with present treatment and follow up plan. Pt is to keep follow up appointment as instructed and take medications as ordered. Discharge Medications Discharge Medications: levofloxacin [From Levaquin] Allergy (Verified 04/18/24 19:24) pineapple Allergy (Verified 01/22/23 11:49) CONTINUE taking the following medications aspirin 81 mg tablet,delayed release 81 mg PO DAILY 04/18/24 [History] clonidine HCl 0.3 mg tablet 0.3 mg PO TID 04/18/24 [History] hydralazine 25 mg tablet 25 mg PO BID 04/18/24 [History] medroxyprogesterone 10 mg tablet 10 mg PO QDAY 04/18/24 [History] metoprolol 200 mg bid losartan 50 mg po daily Nifedipine 120 mg daily Discharge Disposition Assessment: see hospital course Discharge Plan Discharge Plan Hospital Course: This is a 29 year old female within stage renal failure secondary to hypertension. She had dialysis on Sunday,the 18 of April and had significant pulsatile bleeding from the fistula of her left upper arm and was brought to the emergency room by EMS her blood pressure was 220 over 120. I' closed the puncture sites and initially placed her in the ICU and placed her on nitroglycerin drip. She has been on multiple medications for blood pressure but has not been takinf her losartan metoprolol of nifidioine She only been taking her clonidine and hydralazine She was started back on all her medications. blood pressure was under good control when takes her medications. No further bleeding from the puncture sites. She will be discharged today so she can go to dialysis . I will discuss this with her limousine rental clerk. F/U i week with me to remove sutures . Patient Disposition: HOME, SELF-CARE Condition: Stable Health Concerns: Post Hospitalization: new medications and changes needed to prevent readmission or further decline. Pt educated and given instructions on all concerns. Plan of Treatment: Continue with present treatment and follow up plan. Pt is to keep follow up appointment as instructed and take medications as ordered. Assessment: see hospital course Prescription drug monitoring program results: PDMP reviewed and no concerns identified Prescriptions: New losartan 50 mg tablet 50 mg PO QDAY Qty: 60 2RF metoprolol succinate 200 mg tablet extended release 24 hr 200 mg PO BID Qty: 60 2RF nifedipine 60 mg tablet extended release 120 mg PO QDAY Qty: 60 2RF No Action medroxyprogesterone 10 mg tablet 10 mg PO QDAY clonidine HCl 0.3 mg tablet 0.3 mg PO TID hydralazine 25 mg tablet 25 mg PO BID aspirin [Aspir-81] 81 mg Tablet,Delayed Release (Dr/Ec) 81 mg PO DAILY Follow ups/Referrals Follow ups/Referrals: Romi Monge [Primary Care Provider] - 3 days Instructions Stand Alone Forms: Excuse From Work or School, Find Help Web Site, [facility]
[2024-04-21 08:26] VITALS: TEMP 98.1
[2024-04-21 09:20] VITALS: BP 157/82; PULSE 92
--- NOTE | 2024-04-21 10:11 | DR.OPNOTE ---
OP NOTE Pre-Op Diagnosis: pulsatile bleeding from left arm AV graft puncturesx 2, severe HTN Post-Op Diagnosis: same Procedure Date Date Of Procedure: 04/18/24 Procedure: PROCEDURE: CLOSURE OF BLEEDING SITES OF AV FISTULA AFTER DIALYSIS NARRATIVE :This patient had pulsatile bleeding from 2 puncture sites from a left upper arm arterial venous fistula after dialysis secondary to severe hypertension. The dressing was taken down and pressure held on either side of the fistula to the control bleeding and this area prepped with Betadine and both puncture sites closed with figure of 8 sutures of 4-0 nylon controlling the bleeding. Dressing applied. patient tolerated this well . Findings: as above EBL: 25 cc Complications:: none Disposition/Condition: Pt. tolerated procedure without difficulty. Taken to the CCU in stable condition.
[2024-04-21 10:51] VITALS: RESP 18
== END 2024-04-21 12:24 | disposition home or self-care (01) | DRG 981 ==
LOC: ER 18:52 → ICU 22:05
PROVIDERS: ADMIT Surgery; ATTEND Surgery
DX: Z72.0 Tobacco use; E87.1 Hypo-osmolality and hyponatremia; T82.838A Hemorrhage due to vascular prosthetic devices, implants and grafts, initial encounter; I16.0 Hypertensive urgency; N18.6 End stage renal disease; R73.09 Other abnormal glucose; I10 Essential (primary) hypertension; Z99.2 Dependence on renal dialysis